=== PATIENT | male | born 1960 | race African-American/Black ===

== ENCOUNTER 2016-12-07 19:54 | Emergency (ER) | payer BC ==
[~2016-12-07] VITALS: Ht 180.3 cm; Wt 88.0 kg
--- NOTE | ~2016-12-07 | EKG ---
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: HUGH : 1960 Requested By: Maria C Millan Order Number: [id number] MD: Crow Stubbs Measurements Intervals [place] Rate: 65 P: 59 LA: 185 QRS: 18 QRSD: 92 T: 60 QT: 413 QTc: 430 Interpretive Statements Sinus rhythm Nonspecific ST segment abnormality Compared to ECG 04/27/2012 14:36:49 No significant change was found Electronically Signed On 12-09-2016 14:55:13 CDT by Crow Stubbs [email or web address] <ELECTRONICALLY SIGNED> By: Crow Stubbs MD, [facility] 12/09/16 1455 01 01 Crow Stubbs MD, FACC /EPI
[~2016-12-07 19:54] MED LIST: CIPROFLOXACIN500 M1 PO; NORCO 5-325 TA1 EACH PO; POTASSIUM20; PROTONIX 20 MG20 M1 PO; REGLAN 5 MG TAB5 M1 PO; TRIBENZOR 20-51 EACH PO; TRIBENZOR 40-11 EACH PO; ZANTAC 150MG T150 M1 PO; ZOFRAN ODT4 MG PO
[2016-12-07] MEDS ORDERED: PRAVACHOL20 MG PO (19:59)
[2016-12-07] MEDS ORDERED: WELLBUTRIN 100100 MG PO (20:00)
[2016-12-07 20:50] LABS: ABSOLUTE NEUTROPHILS 9.1 thou/uL (1.4-8.2); BASOPHILS 0.7 % (0.0-2.0); HEMATOCRIT 45.2 % (42.0-52.0); LYMPHOCYTES 11.8 % (24.0-44.0); MCH 30.9 pg (26.0-34.0); MCHC 35.4 g/dL (28.0-37.0); MCV 87.5 fL (80.0-100.0); MONOCYTES 2.4 % (1.0-8.0); PLATELET COUNT 263 thou/uL (150-400); POLYS 85.1 % (36.0-66.0); RBC 5.16 mil/uL (4.50-6.00); RDW 13.6 % (10.5-14.5); WBC 10.7 thou/uL (4.0-11.0)
[2016-12-07 20:50] LABS: URINE BILIRUBIN NEGATIVE (Negative); URINE BLOOD TRACE (Negative); URINE COLOR YELLOW; URINE GLUCOSE-RANDOM* NEGATIVE (Negative); URINE KETONES TRACE (Negative); URINE LEUKOCYTES-REFLEX NEGATIVE (Negative); URINE PROTEIN (DIPSTICK) TRACE (Negative); URINE SPECIFIC GRAVITY 1.015 (1.003-1.035); URINE UROBILINOGEN 0.2 E.U./dl (0.2-1.0)
[2016-12-07 20:51] LABS: MANUAL DIFF NO
[2016-12-07 21:02] LABS: ANION GAP 12 mmol/L (7-16); BUN 10 mg/dL (7-18); CALCIUM 9.4 mg/dL (8.5-10.1); CHLORIDE 103 mmol/L (98-107); CO2 26 mmol/L (21-32); GLUCOSE 120 mg/dL (74-106); SODIUM 141 mmol/L (136-145)
[2016-12-07 21:07] LABS: ALBUMIN 3.9 g/dL (3.4-5.0); ALKALINE PHOSPHATASE 86 U/L (46-116); SGOT 32 U/L (15-37); SGPT 42 U/L (30-65); TOTAL BILIRUBIN 0.7 mg/dL (<0.1-1.0); TOTAL PROTEIN 8.3 g/dL (6.4-8.2); TROPONIN-I < 0.04 ng/mL (<0.04-0.07)
[2016-12-07] MEDS ORDERED: PREVACID30 MG PO (23:14)
[2016-12-07] MEDS ORDERED: HYDROCODONE-AP1 EAC6 PO (23:14)
[2016-12-07] MEDS ORDERED: PHENERGAN 25 MG25 M1 PO (23:14)
[2016-12-07] MEDS ORDERED: ZANTAC 150MG T150 MG PO (23:14)
[2016-12-07] MEDS ORDERED: CARAFATE 1 GM TA1 G1 PO (23:14)
[2016-12-08] VITALS: BP 162/92
== END 2016-12-08 | disposition home or self-care (01) ==
LOC: ER 19:54
PROVIDERS: Physician Assistant
DX: R10.13 Epigastric pain (principal); R11.2 Nausea with vomiting, unspecified; I10 Essential (primary) hypertension; F17.210 Nicotine dependence, cigarettes, uncomplicated; F10.99 Alcohol use, unspecified with unspecified alcohol-induced disorder

== ENCOUNTER 2017-05-26 08:45 | Emergency (ER) | payer BC ==
[~2017-05-26] VITALS: Ht 180.3 cm; Wt 89.4 kg
--- NOTE | ~2017-05-26 | EKG ---
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: : 1960 Requested By: Waldo Wang Order Number: [id number] MD: Miguel Diaz Measurements Intervals [place] Rate: 74 P: 43 [place]: 204 QRS: 13 QRSD: 89 T: 49 QT: 412 QTc: 457 Interpretive Statements Sinus rhythm Borderline prolonged [place] interval Baseline wander in lead(s) I,III,aVL,aVF,V1,V5 Compared to ECG 12/07/2016 20:02:34 ST (T wave) deviation no longer present Electronically Signed On 05-26-2017 10:43:15 CDT by Miguel Diaz [email or web address] <ELECTRONICALLY SIGNED> By: Miguel Diaz MD 05/26/17 1043 2 2 Miguel Diaz MD /VIKY
[~2017-05-26 08:45] MED LIST changes: +CARAFATE 1 GM TA1 G1 PO; +HYDROCODONE-AP1 EAC6 PO; +PHENERGAN 25 MG25 M1 PO; +PRAVACHOL20 MG PO; +PREVACID30 MG PO; +WELLBUTRIN 100100 MG PO; +ZANTAC 150MG T150 MG PO
[2017-05-26 09:21] LABS: HEMOGLOBIN 16.6 gm/dL (14.0-18.0)
[2017-05-26 09:24] LABS: BASOPHILS 1.1 % (0.0-2.0); EOSINOPHILS 0.8 % (0.0-3.0); HEMATOCRIT 46.4 % (42.0-52.0); MCH 31.5 pg (26.0-34.0); MCHC 35.8 g/dL (28.0-37.0); MCV 87.9 fL (80.0-100.0); MONOCYTES 4.1 % (1.0-8.0); PLATELET COUNT 231 thou/uL (150-400); RBC 5.27 mil/uL (4.50-6.00); RDW 13.1 % (10.5-14.5); WBC 8.5 thou/uL (4.0-11.0)
[2017-05-26 09:27] LABS: MANUAL DIFF NO
[2017-05-26 09:28] LABS: ANION GAP 12 mmol/L (7-16); BUN 14 mg/dL (7-18); CALCIUM 9.8 mg/dL (8.5-10.1); CHLORIDE 102 mmol/L (98-107); CO2 23 mmol/L (21-32); CREATININE 1.1 mg/dL (0.7-1.3); GLUCOSE 117 mg/dL (74-106); POTASSIUM 3.2 mmol/L (3.5-5.1); SODIUM 137 mmol/L (136-145)
[2017-05-26 09:37] LABS: ALBUMIN 4.3 g/dL (3.4-5.0); ALKALINE PHOSPHATASE 89 U/L (46-116); SGOT 43 U/L (15-37); SGPT 66 U/L (30-65); TOTAL BILIRUBIN 0.5 mg/dL (<0.1-1.0); TOTAL PROTEIN 8.4 g/dL (6.4-8.2); TROPONIN-I < 0.04 ng/mL (<0.04-0.07)
[2017-05-26] MEDS ORDERED: PEPCID20 MG PO (11:24)
[2017-05-26] MEDS ORDERED: OXYCODONE HCL 55 MG PO (11:24)
[2017-05-26 12:05] VITALS: BP 130/79
== END 2017-05-26 12:07 | disposition home or self-care (01) ==
LOC: ER 08:45
PROVIDERS: Emergency Medicine
DX: R10.13 Epigastric pain (principal); I10 Essential (primary) hypertension; F17.210 Nicotine dependence, cigarettes, uncomplicated; F10.10 Alcohol abuse, uncomplicated

== ENCOUNTER 2018-01-30 18:21 | Emergency (ER) | payer BC ==
[~2018-01-30] VITALS: Ht 180.3 cm; Wt 91.2 kg
--- NOTE | ~2018-01-30 | EKG ---
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
[~2018-01-30 18:21] MED LIST changes: +OXYCODONE HCL 55 MG PO; +PEPCID20 MG PO
[2018-01-30 19:13] LABS: ABSOLUTE NEUTROPHILS 7.2 thou/uL (1.4-8.2); BASOPHILS 0.6 % (0.0-2.0); EOSINOPHILS 0.3 % (0.0-3.0); HEMATOCRIT 44.7 % (42.0-52.0); HEMOGLOBIN 15.7 gm/dL (14.0-18.0); LYMPHOCYTES 16.2 % (24.0-44.0); MCHC 35.2 g/dL (28.0-37.0); MCV 90.9 fL (80.0-100.0); MONOCYTES 3.8 % (1.0-8.0); PLATELET COUNT 242 thou/uL (150-400); POLYS 79.1 % (36.0-66.0); RBC 4.92 mil/uL (4.50-6.00); RDW 13.2 % (10.5-14.5); WBC 9.1 thou/uL (4.0-11.0)
[2018-01-30 19:21] LABS: CALCIUM 10.1 mg/dL (8.5-10.1); CREATININE 1.2 mg/dL (0.7-1.3)
[2018-01-30 19:24] LABS: POTASSIUM 2.9 mmol/L (3.5-5.1)
[2018-01-30 19:30] LABS: ALBUMIN 4.2 g/dL (3.4-5.0); TOTAL BILIRUBIN 0.8 mg/dL (<0.1-1.0); TOTAL PROTEIN 8.2 g/dL (6.4-8.2)
[2018-01-30] MEDS ORDERED: CARAFATE 1 GM TA1 G1 PO (20:41)
[2018-01-30] MEDS ORDERED: ZOFRAN ODT4 MG PO (20:42)
[2018-01-30 20:48] VITALS: BP 129/86
== END 2018-01-30 20:49 | disposition home or self-care (01) ==
LOC: ER 18:21
PROVIDERS: Physician Assistant
DX: K29.00 Acute gastritis without bleeding (principal); E87.6 Hypokalemia; I10 Essential (primary) hypertension; F17.210 Nicotine dependence, cigarettes, uncomplicated

== ENCOUNTER 2018-03-28 11:46 | Emergency (ER) | payer BC ==
[~2018-03-28] VITALS: Ht 180.3 cm; Wt 95.3 kg
--- NOTE | ~2018-03-28 | EKG ---
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
[2018-03-28 12:12] LABS: MCH 31.9 pg (26.0-34.0); MCHC 35.7 g/dL (28.0-37.0)
[2018-03-28 12:16] LABS: BASOPHILS 0.7 % (0.0-2.0); EOSINOPHILS 0.3 % (0.0-3.0); HEMOGLOBIN 15.3 gm/dL (14.0-18.0); LYMPHOCYTES 11.8 % (24.0-44.0); MCV 89.4 fL (80.0-100.0); MONOCYTES 4.5 % (1.0-8.0); PLATELET COUNT 235 thou/uL (150-400); POLYS 82.7 % (36.0-66.0); RBC 4.81 mil/uL (4.50-6.00); RDW 13.1 % (10.5-14.5); WBC 12.1 thou/uL (4.0-11.0)
[2018-03-28 12:17] LABS: ANION GAP 12 mmol/L (7-16); BUN 13 mg/dL (7-18); CALCIUM 9.8 mg/dL (8.5-10.1); CHLORIDE 105 mmol/L (98-107); CO2 24 mmol/L (21-32); CREATININE 1.1 mg/dL (0.7-1.3); GLUCOSE 132 mg/dL (74-106); POTASSIUM 3.3 mmol/L (3.5-5.1); SODIUM 141 mmol/L (136-145)
[2018-03-28 12:26] LABS: ALBUMIN 4.1 g/dL (3.4-5.0); LIPASE 107 U/L (73-393); SGOT 33 U/L (15-37); SGPT 53 U/L (30-65); TOTAL BILIRUBIN 0.5 mg/dL (<0.1-1.0); TOTAL PROTEIN 8.3 g/dL (6.4-8.2); TROPONIN-I <0.06 ng/mL (<0.06)
[2018-03-28] MEDS ORDERED: ZOFRAN ODT4 MG PO (13:31)
[2018-03-28 13:37] LABS: URINE BILIRUBIN NEGATIVE (Negative); URINE BLOOD NEGATIVE (Negative); URINE CLARITY CLEAR; URINE COLOR YELLOW; URINE GLUCOSE-RANDOM* NEGATIVE (Negative); URINE KETONES NEGATIVE (Negative); URINE LEUKOCYTES-REFLEX NEGATIVE (Negative); URINE NITRITE-REFLEX NEGATIVE (Negative); URINE PROTEIN (DIPSTICK) NEGATIVE (Negative); URINE UROBILINOGEN 0.2 E.U./dl (0.2-1.0)
[2018-03-28 14:14] VITALS: BP 171/100
== END 2018-03-28 14:15 | disposition home or self-care (01) ==
LOC: ER 11:46
PROVIDERS: Physician Assistant
DX: F12.188 Cannabis abuse with other cannabis-induced disorder (principal); R10.10 Upper abdominal pain, unspecified; R10.13 Epigastric pain; E87.6 Hypokalemia; I10 Essential (primary) hypertension

== ENCOUNTER 2018-06-12 12:46 | Emergency (ER) | payer BC ==
[~2018-06-12] VITALS: Ht 180.3 cm; Wt 94.8 kg
--- NOTE | ~2018-06-12 | EKG ---
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 : 1960 Requested By: Ramonita Maravilla Order Number: [id number] MD: Crow Stubbs Measurements Intervals [place] Rate: 55 P: 34 ID: 239 QRS: 12 QRSD: 87 T: 49 QT: 449 QTc: 430 Interpretive Statements Sinus bradycardia Prolonged ID interval Nonspecific ST and T wave abnormality Compared to ECG 03/28/2018 12:16:32 First degree AV block now present nonspecific change in the T wave abnormality Electronically Signed On 06-12-2018 15:25:31 CDT by Crow Stubbs [email or web address] <ELECTRONICALLY SIGNED> By: Crow Stubbs MD, [facility] 06/12/18 1525 15 15 Crow Stubbs MD, FACC /EPI
[2018-06-12 13:08] LABS: URINE BILIRUBIN NEGATIVE (Negative); URINE BLOOD TRACE (Negative); URINE CLARITY CLEAR; URINE COLOR YELLOW; URINE GLUCOSE-RANDOM* NEGATIVE (Negative); URINE KETONES NEGATIVE (Negative); URINE LEUKOCYTES-REFLEX NEGATIVE (Negative); URINE NITRITE-REFLEX NEGATIVE (Negative); URINE PROTEIN (DIPSTICK) NEGATIVE (Negative); URINE SPECIFIC GRAVITY 1.015 (1.005-1.035); URINE UROBILINOGEN 0.2 E.U./dl (0.2-1.0)
[2018-06-12 13:22] LABS: ABSOLUTE NEUTROPHILS 6.5 thou/uL (1.4-8.2); BASOPHILS 0.6 % (0.0-2.0); EOSINOPHILS 0.3 % (0.0-3.0); HEMATOCRIT 45.6 % (42.0-52.0); HEMOGLOBIN 15.7 gm/dL (14.0-18.0); LYMPHOCYTES 10.9 % (24.0-44.0); MCH 31.2 pg (26.0-34.0); MCHC 34.4 g/dL (28.0-37.0); MCV 90.6 fL (80.0-100.0); MONOCYTES 2.1 % (1.0-8.0); PLATELET COUNT 244 thou/uL (150-400); POLYS 86.1 % (36.0-66.0); RBC 5.03 mil/uL (4.50-6.00); RDW 13.8 % (10.5-14.5); WBC 7.6 thou/uL (4.0-11.0)
[2018-06-12 13:25] LABS: CALCIUM 9.9 mg/dL (8.5-10.1); CREATININE 1.1 mg/dL (0.7-1.3); POTASSIUM 3.1 mmol/L (3.5-5.1)
[2018-06-12 13:26] LABS: AMP/METHAMP Negative (Negative); BARBITURATES Negative (Negative); BENZODIAZEPINES Negative (Negative); COCAINE Negative (Negative); METHADONE Negative (Negative); OPIATES Negative (Negative); PCP Negative (Negative)
[2018-06-12 13:31] LABS: ALBUMIN 4.2 g/dL (3.4-5.0); TOTAL BILIRUBIN 0.6 mg/dL (<0.1-1.0); TOTAL PROTEIN 8.7 g/dL (6.4-8.2)
[2018-06-12 13:33] LABS: LIPASE 108 U/L (73-393); TROPONIN-I <0.06 ng/mL (<0.06)
[2018-06-12] MEDS ORDERED: PHENERGAN 25 MG25 M1 PO (14:19)
[2018-06-12 15:48] VITALS: BP 150/73
== END 2018-06-12 16:05 | disposition home or self-care (01) ==
LOC: ER 12:46
PROVIDERS: Nurse Practitioner Family
DX: F12.188 Cannabis abuse with other cannabis-induced disorder (principal); F17.210 Nicotine dependence, cigarettes, uncomplicated; I10 Essential (primary) hypertension

== ENCOUNTER 2018-09-26 13:05 | Emergency (ER) | payer BC ==
[~2018-09-26] VITALS: Ht 175.3 cm; Wt 92.5 kg
[2018-09-26 13:53] LABS: ANION GAP 16 mmol/L (7-16); BUN 15 mg/dL (7-18); CALCIUM 10.5 mg/dL (8.5-10.1); CHLORIDE 100 mmol/L (98-107); CO2 23 mmol/L (21-32); CREATININE 1.3 mg/dL (0.7-1.3); GLUCOSE 130 mg/dL (74-106); SODIUM 139 mmol/L (136-145)
[2018-09-26 13:56] LABS: POTASSIUM 2.8 mmol/L (3.5-5.1)
[2018-09-26 13:59] LABS: HEMATOCRIT 48.9 % (42.0-52.0); HEMOGLOBIN 17.5 gm/dL (14.0-18.0); MCH 32.1 pg (26.0-34.0); MCHC 35.8 g/dL (28.0-37.0); MCV 89.7 fL (80.0-100.0); PLATELET COUNT 271 thou/uL (150-400); RBC 5.45 mil/uL (4.50-6.00); WBC 7.7 thou/uL (4.0-11.0)
[2018-09-26 14:01] LABS: ALBUMIN 4.6 g/dL (3.4-5.0); LIPASE 88 U/L (73-393); SGOT 32 U/L (15-37); SGPT 56 U/L (30-65); TOTAL BILIRUBIN 0.8 mg/dL (<0.1-1.0); TOTAL PROTEIN 9.1 g/dL (6.4-8.2); TROPONIN-I <0.06 ng/mL (<0.06)
[2018-09-26 14:34] LABS: ABSOLUTE NEUTROPHILS 6.1 thou/uL (1.4-8.2); ATYPICAL LYMPHS 5 %; NUCLEATED RBCS 1 /100WBC; PLATELET ESTIMATE NORMAL
[2018-09-26] MEDS ORDERED: ZOFRAN ODT4 MG DISSOLVE (15:13)
[2018-09-26] MEDS ORDERED: TRAMADOL 50 MG50 MG PO (15:13)
[2018-09-26] MEDS ORDERED: PRILOSEC 20 MG20 MG PO (15:13)
[2018-09-26] MEDS ORDERED: POTASSIUM20 PO (15:16)
[2018-09-26 15:48] LABS: URINE BILIRUBIN NEGATIVE (Negative); URINE BLOOD NEGATIVE (Negative); URINE CLARITY CLEAR; URINE COLOR YELLOW; URINE GLUCOSE-RANDOM* NEGATIVE (Negative); URINE KETONES 1+ (Negative); URINE LEUKOCYTES-REFLEX NEGATIVE (Negative); URINE NITRITE-REFLEX NEGATIVE (Negative); URINE PROTEIN (DIPSTICK) NEGATIVE (Negative); URINE SPECIFIC GRAVITY 1.015 (1.005-1.035); URINE UROBILINOGEN 0.2 E.U./dl (0.2-1.0)
[2018-09-26 16:55] VITALS: BP 142/86
--- NOTE | 2018-09-27 10:42 | EKG ---
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 : 1960 Requested By: Shon Chilel Order Number: [id number] MD: Miguel Diaz Measurements Intervals [place] Rate: 70 P: 58 AR: 182 QRS: 11 QRSD: 91 T: 70 QT: 429 QTc: 463 Interpretive Statements Sinus rhythm Nonspecific ST segment abnormalities Compared to ECG 06/12/2018 13:16:44 Sinus bradycardia no longer present First degree AV block no longer present ST (T wave) deviation no longer present Electronically Signed On 09-27-2018 10:42:29 DOOR FURRING INSTALLER by Miguel Diaz [email or web address] <ELECTRONICALLY SIGNED> By: Miguel Diaz MD 09/27/18 1042 D: [id number] 51 Miguel Diaz MD /VIKY
== END 2018-09-26 17:14 | disposition home or self-care (01) ==
LOC: ER 13:05
PROVIDERS: Emergency Medicine
DX: E87.6 Hypokalemia (principal); R10.13 Epigastric pain; R11.2 Nausea with vomiting, unspecified; R19.7 Diarrhea, unspecified; F17.210 Nicotine dependence, cigarettes, uncomplicated; I10 Essential (primary) hypertension

== ENCOUNTER 2018-12-20 14:33 | Emergency (ER) | payer BC ==
[~2018-12-20] VITALS: Ht 180.3 cm; Wt 92.5 kg
[~2018-12-20 14:33] MED LIST changes: +POTASSIUM20 PO; +PRILOSEC 20 MG20 MG PO; +TRAMADOL 50 MG50 MG PO; +ZOFRAN ODT4 MG DISSOLVE
[2018-12-20 14:45] LABS: URINE BILIRUBIN NEGATIVE (Negative); URINE BLOOD NEGATIVE (Negative); URINE CLARITY CLEAR; URINE COLOR YELLOW; URINE GLUCOSE-RANDOM* NEGATIVE (Negative); URINE KETONES NEGATIVE (Negative); URINE LEUKOCYTES-REFLEX NEGATIVE (Negative); URINE NITRITE-REFLEX NEGATIVE (Negative); URINE PROTEIN (DIPSTICK) NEGATIVE (Negative); URINE SPECIFIC GRAVITY 1.015 (1.005-1.035); URINE UROBILINOGEN 0.2 E.U./dl (0.2-1.0)
[2018-12-20 15:19] LABS: ABSOLUTE NEUTROPHILS 7.4 thou/uL (1.4-8.2); BASOPHILS 0.5 % (0.0-2.0); HEMATOCRIT 46.2 % (42.0-52.0); HEMOGLOBIN 16.2 gm/dL (14.0-18.0); LYMPHOCYTES 9.8 % (24.0-44.0); MCH 31.3 pg (26.0-34.0); MCHC 35.1 g/dL (28.0-37.0); MCV 89.2 fL (80.0-100.0); MONOCYTES 2.1 % (1.0-8.0); PLATELET COUNT 260 thou/uL (150-400); POLYS 87.6 % (36.0-66.0); RBC 5.18 mil/uL (4.50-6.00); RDW 13.5 % (10.5-14.5); WBC 8.4 thou/uL (4.0-11.0)
[2018-12-20 15:38] LABS: ANION GAP 15 mmol/L (7-16); BUN 14 mg/dL (7-18); CALCIUM 10.4 mg/dL (8.5-10.1); CHLORIDE 103 mmol/L (98-107); CO2 24 mmol/L (21-32); GLUCOSE 148 mg/dL (74-106); POTASSIUM 3.5 mmol/L (3.5-5.1); SODIUM 142 mmol/L (136-145)
[2018-12-20 15:45] LABS: ALBUMIN 4.2 g/dL (3.4-5.0); DIRECT BILIRUBIN < 0.1 mg/dL (<0.1-0.3); LIPASE 66 U/L (73-393); SGOT 36 U/L (15-37); SGPT 49 U/L (30-65); TOTAL BILIRUBIN 0.5 mg/dL (<0.1-1.0); TOTAL PROTEIN 8.6 g/dL (6.4-8.2)
[2018-12-20] MEDS ORDERED: ZOFRAN ODT4 MG PO (17:52)
[2018-12-20] MEDS ORDERED: BENTYL 20 MG TA20 M1 PO (17:52)
[2018-12-20 18:46] VITALS: BP 139/88
== END 2018-12-20 18:48 | disposition home or self-care (01) ==
LOC: ER 14:33
PROVIDERS: Emergency Medicine
DX: K52.9 Noninfective gastroenteritis and colitis, unspecified (principal); F17.210 Nicotine dependence, cigarettes, uncomplicated; I10 Essential (primary) hypertension